=== PATIENT | male | born 1975 | race Caucasian/White ===

== ENCOUNTER 2018-11-20 22:49 | Emergency (ER) | payer OTHER ==
[~2018-11-20] VITALS: Ht 182.9 cm; Wt 97.5 kg
[2018-11-20] MEDS ORDERED: NORCO 5-325 TA1 EAC1 PO (22:57)
[2018-11-20] MEDS ORDERED: FLEXERIL PO (22:57)
[2018-11-20] MEDS ORDERED: SYNTHROID25 MC1 PO (22:58)
[2018-11-21] MEDS ORDERED: NEURONTIN 300300 M1 PO (00:03)
[2018-11-21 00:24] VITALS: BP 154/92
== END 2018-11-21 00:25 | disposition home or self-care (01) ==
LOC: M.ERS 22:49
DX: M54.12 Radiculopathy, cervical region (principal); I10 Essential (primary) hypertension; E03.9 Hypothyroidism, unspecified

== ENCOUNTER 2018-11-26 11:42 | Inpatient (IN) | payer OTHER ==
[~2018-11-26] VITALS: Ht 182.9 cm; Wt 95.3 kg
[~2018-11-26 11:42] MED LIST: FLEXERIL PO; NEURONTIN 300300 M1 PO; NORCO 5-325 TA1 EAC1 PO; SYNTHROID25 MC1 PO
[2018-11-26 11:49] VITALS: BP 155/109
[2018-11-26 12:20] LABS: ABSOLUTE EOSINOPHILS 0.3 thou/uL (0.0-0.7); ABSOLUTE MONOCYTES 0.6 thou/uL (0.0-1.2); ABSOLUTE NEUTROPHILS 3.4 thou/uL (1.6-8.1); BASOPHILS 0.4 %; EOSINOPHILS 5.9 %; HEMOGLOBIN 14.9 gm/dL (14.0-18.0); LYMPHOCYTES 19.1 %; MCH 33.4 pg (26.0-34.0); MCHC 35.5 g/dL (28.0-37.0); MCV 94.1 fL (80.0-100.0); MONOCYTES 11.2 %; MPV 6.8 fl. (7.2-11.1); NUCLEATED RBCS 0 /100WBC; PLATELET COUNT* 238 thou/uL (150-400); POLYS 63.4 %; RBC 4.46 mil/uL (4.50-6.00); RDW-CV 12.3 % (10.5-14.5); WBC 5.3 thou/uL (4.0-11.0)
[2018-11-26 12:30] LABS: CALCIUM 9.1 mg/dL (8.5-10.1); CREATININE 1.3 mg/dL (0.6-1.3); POTASSIUM 3.4 mmol/L (3.5-5.1)
[2018-11-26 12:34] LABS: ALBUMIN 3.6 g/dL (3.4-5.0); TOTAL BILIRUBIN 1.6 mg/dL (<0.1-1.0)
[2018-11-26 14:49] LABS: URINE BLOOD 1+ (Negative); URINE CLARITY CLEAR; URINE COLOR YELLOW; URINE GLUCOSE-RANDOM NEGATIVE (Negative); URINE KETONES 1+ (Negative); URINE LEUKOCYTES NEGATIVE (Negative); URINE NITRITE NEGATIVE (Negative); URINE PROTEIN NEGATIVE (Negative); URINE SPECIFIC GRAVITY 1.025 (1.005-1.030); URINE UROBILINOGEN 0.2 E.U./dl (0.2-1.0)
[2018-11-26 14:52] LABS: ICTOTEST (BILI CONFIRMATORY) Negative (Negative); URINE BILIRUBIN 1+ (Negative)
[2018-11-26 14:56] LABS: SQUAMOUS 0-3 Few /LPF (0-3); URINE WBC 0-5 Rare /HPF (0-5)
[2018-11-26 14:57] LABS: URINE RBC 0-2 Rare /HPF (0-2)
[2018-11-26 15:00] LABS: CASTS None Seen /LPF (None Seen); CRYSTALS None Seen /LPF (None Seen); MUCUS >6 Heavy strn/LPF (None Seen)
[2018-11-26 16:54] VITALS: BP 132/89
[2018-11-26 17:00] VITALS: BP 158/101
[2018-11-26 19:26] LABS: TOTAL PROTEIN 6.7 g/dL (6.4-8.2)
[2018-11-26 21:00] VITALS: BP 140/93
[2018-11-27 04:29] LABS: ABSOLUTE EOSINOPHILS 0.3 thou/uL (0.0-0.7); ABSOLUTE LYMPHOCYTES 1.1 thou/uL (0.8-5.3); ABSOLUTE MONOCYTES 0.7 thou/uL (0.0-1.2); ABSOLUTE NEUTROPHILS 4.1 thou/uL (1.6-8.1); BASOPHILS 0.4 %; EOSINOPHILS 4.6 %; HEMATOCRIT 37.5 % (42.0-52.0); HEMOGLOBIN 13.3 gm/dL (14.0-18.0); LYMPHOCYTES 17.5 %; MCH 33.5 pg (26.0-34.0); MCHC 35.4 g/dL (28.0-37.0); MCV 94.6 fL (80.0-100.0); MONOCYTES 10.6 %; MPV 6.9 fl. (7.2-11.1); NUCLEATED RBCS 0 /100WBC; PLATELET COUNT* 217 thou/uL (150-400); POLYS 66.9 %; RBC 3.96 mil/uL (4.50-6.00); RDW-CV 12.6 % (10.5-14.5); WBC 6.2 thou/uL (4.0-11.0)
[2018-11-27 04:51] LABS: CALCIUM 8.5 mg/dL (8.5-10.1); CREATININE 1.2 mg/dL (0.6-1.3); MAGNESIUM 1.6 mg/dL (1.8-2.4); POTASSIUM 3.6 mmol/L (3.5-5.1); TOTAL BILIRUBIN 1.2 mg/dL (<0.1-1.0); TOTAL PROTEIN 5.9 g/dL (6.4-8.2)
[2018-11-27 07:15] VITALS: BP 129/81
[2018-11-27 17:00] VITALS: BP 124/76
[2018-11-27 20:00] VITALS: BP 121/89
[2018-11-28 08:49] VITALS: BP 126/88
[2018-11-28] MEDS ORDERED: DOK PLUS TABLE1 EACH PO (10:15)
[2018-11-28] MEDS ORDERED: FLAGYL500 M1 PO (10:15)
[2018-11-28] MEDS ORDERED: CIPRO500 MG PO (10:15)
[2018-11-28 10:48] VITALS: BP 126/88
[2018-11-28 11:22] LABS: ABSOLUTE EOSINOPHILS 0.3 thou/uL (0.0-0.7); ABSOLUTE MONOCYTES 0.6 thou/uL (0.0-1.2); ABSOLUTE NEUTROPHILS 2.4 thou/uL (1.6-8.1); BASOPHILS 0.5 %; EOSINOPHILS 6.4 %; HEMATOCRIT 38.9 % (42.0-52.0); HEMOGLOBIN 13.9 gm/dL (14.0-18.0); LYMPHOCYTES 23.1 %; MCH 33.4 pg (26.0-34.0); MCHC 35.7 g/dL (28.0-37.0); MCV 93.7 fL (80.0-100.0); MPV 6.4 fl. (7.2-11.1); NUCLEATED RBCS 0 /100WBC; PLATELET COUNT* 239 thou/uL (150-400); RBC 4.15 mil/uL (4.50-6.00); RDW-CV 12.8 % (10.5-14.5); WBC 4.3 thou/uL (4.0-11.0)
[2018-11-28 11:29] LABS: CALCIUM 8.4 mg/dL (8.5-10.1); CREATININE 1.1 mg/dL (0.6-1.3); POTASSIUM 3.4 mmol/L (3.5-5.1)
== END 2018-11-28 13:23 | disposition home or self-care (01) | DRG 394 ==
LOC: M.ERS 11:42 → M.TBA-ER 15:46 → M.ORTHSURG 16:50
PROVIDERS: Physician Assistant; ADMIT Family Medicine
DX: K62.89 Other specified diseases of anus and rectum (principal); N39.0 Urinary tract infection, site not specified; I10 Essential (primary) hypertension; E03.9 Hypothyroidism, unspecified; K52.9 Noninfective gastroenteritis and colitis, unspecified; K59.03 Drug induced constipation; E87.6 Hypokalemia; E83.42 Hypomagnesemia; M48.8X2 Other specified spondylopathies, cervical region; T40.2X5A Adverse effect of other opioids, initial encounter; Y92.89 Other specified places as the place of occurrence of the external cause; Z79.899 Other long term (current) drug therapy; Z83.49 Family history of other endocrine, nutritional and metabolic diseases

== ENCOUNTER → 2020-09-06 | Outpatient (CLI) | payer OTHER ==
[~2020-09-06] MED LIST changes: +CIPRO500 MG PO; +DOK PLUS TABLE1 EACH PO; +FLAGYL500 M1 PO
== END ==
LOC: M.CT 08:14
PROVIDERS: ATTEND Internal Medicine Cardiovascular Disease
DX: Z13.6 Encounter for screening for cardiovascular disorders (principal)